=== PATIENT | male | born 1975 | race African-American/Black ===

== ENCOUNTER 2018-08-30 08:16 | Emergency (ER) | payer MEDICAID ==
[~2018-08-30] VITALS: Ht 190.5 cm; Wt 98.0 kg
[2018-08-30] MEDS ORDERED: ACETAMINOPHEN 500MG TABLET PO ONE (09:15)
[2018-08-30 10:07] VITALS: BP 127/99
== END 2018-08-30 10:08 | disposition home or self-care (01) ==
LOC: ER 08:16
DX: J02.9 Acute pharyngitis, unspecified (principal); F17.200 Nicotine dependence, unspecified, uncomplicated
CPT/HCPCS: 87430; 99283